=== PATIENT | female | born 1935 | race Caucasian/White ===

== ENCOUNTER 2017-12-25 10:22 | Inpatient (IN) | payer OTHER, BC ==
[~2017-12-25] VITALS: Ht 160 cm; Wt 66.0 kg
[~2017-12-25 10:22] MED LIST: ALTACE10 MG PO; ASPIRIN325 MG PO; ATIVAN2 MG PO; BENTYL20 MG PO; CENTRUM SILVER1 EAC3 PO; CITRACAL D + H1 EACH PO; LEVOXYL50 MCG PO; NEXIUM20 MG PO; TOPROL XL100 MG PO; TYLENOL EXTRA500 MG PO; ZOCOR10 MG PO; ZOLOFT100 MG PO; ZOLOFT25 MG PO
[2017-12-25 11:27] LABS: HEMATOCRIT 40.8 % (36.0-46.0); MCH 31.5 PG (29.0-34.0); MCHC 34.3 G/DL (30.0-36.0); MCV 91.9 FL (83-99); PLATELET COUNT 203 K/uL (156-360); RBC DIS.WIDTH-CV 13.9 % (11.8-14.6); RBC DIS.WIDTH-SD 47.2 % (39-53); RED BLOOD COUNT 4.44 M/uL (3.80-5.20); WHITE BLOOD COUNT 8.9 K/uL (4.1-10.2)
[2017-12-25 11:36] LABS: CHLORIDE 95 mEq/L (99-109); POTASSIUM 3.9 mEq/L (3.7-5.4); SODIUM 128 mEq/L (136-147)
[2017-12-25 11:37] LABS: GLUCOSE 110 mg/dL (70-99)
[2017-12-25 11:41] LABS: CREATININE 1.2 mg/dL (0.6-1.3); GFR ESTIMATE (CALCULATED) 46 mL/min/
[2017-12-25 11:42] LABS: UREA NITROGEN (BUN) 24 mg/dL (9-23)
[2017-12-25 11:48] LABS: TROP-I INTERPRETATION NEGATIVE; TROPONIN-I 0.02 ng/mL (0.0-0.30)
[2017-12-25] MEDS ORDERED: NITROFURANTOIN100 M3 PO (16:41)
[2017-12-25] MEDS ORDERED: METOPROLOL SUC200 MG PO (16:42)
[2017-12-25] MEDS ORDERED: RAMIPRIL10 MG PO (16:45)
[2017-12-25] MEDS ORDERED: TRAMADOL HCL50 MG PO (16:45)
[2017-12-25] MEDS ORDERED: LORAZEPAM2 MG PO (16:55)
[2017-12-25] MEDS ORDERED: XARELTO20 MG PO (16:56)
[2017-12-25] MEDS ORDERED: LO-DOSE ASPIRIN81 M2 PO (16:56)
[2017-12-25] MEDS ORDERED: LEVOTHYROXINE50 MCG PO (16:56)
[2017-12-25 16:59] VITALS: BP 129/75
[2017-12-25 17:00] VITALS: BP 129/75
[2017-12-25 19:27] LABS: TROP-I INTERPRETATION NEGATIVE; TROPONIN-I 0.02 ng/mL (0.0-0.30)
[2017-12-25 19:40] VITALS: BP 108/62
[2017-12-25 23:00] VITALS: BP 121/65
[2017-12-26 00:56] LABS: TROP-I INTERPRETATION NEGATIVE; TROPONIN-I 0.01 ng/mL (0.0-0.30)
[2017-12-26 04:00] VITALS: BP 126/66
[2017-12-26 07:05] LABS: HEMATOCRIT 40.5 % (36.0-46.0); HEMOGLOBIN 13.3 G/DL (11.9-15.5); MCH 30.4 PG (29.0-34.0); MCHC 32.8 G/DL (30.0-36.0); MCV 92.5 FL (83-99); PLATELET COUNT 178 K/uL (156-360); RBC DIS.WIDTH-CV 13.8 % (11.8-14.6); RBC DIS.WIDTH-SD 47.3 % (39-53); RED BLOOD COUNT 4.38 M/uL (3.80-5.20); WHITE BLOOD COUNT 8.8 K/uL (4.1-10.2)
[2017-12-26 07:28] LABS: CHLORIDE 101 MEQ/L (99-109); CREATININE 0.9 MG/DL (0.6-1.3); GFR ESTIMATE (CALCULATED) > 59 mL/min/; GLUCOSE 95 mg/dL (70-99); POTASSIUM 4.2 MEQ/L (3.7-5.4); UREA NITROGEN (BUN) 16 mg/dL (9-23)
[2017-12-26 07:29] LABS: SODIUM 135 MEQ/L (136-147)
[2017-12-26 07:32] LABS: TROP-I INTERPRETATION NEGATIVE; TROPONIN-I < 0.01 ng/mL (0.0-0.30)
[2017-12-26 07:46] VITALS: BP 113/78; BP 1137/78
[2017-12-26 08:00] LABS: THYROTROPIN (TSH) 5.3 MIU/L (0.4-5.5)
[2017-12-26 11:00] VITALS: BP 107/61
[2017-12-26 15:50] VITALS: BP 106/72
[2017-12-26 17:14] LABS: APPEARANCE TURBID ((CLEAR)); BILIRUBIN NEGATIVE; BLOOD MODERATE; COLOR AMBER ((YELLOW)); GLUCOSE (STRIP) NEGATIVE; KETONES NEGATIVE; LEUKOCYTES LARGE; NITRITE NEGATIVE; PROTEIN (STRIP) 30; SPECIFIC GRAVITY 1.009 (1.000-1.030); UROBILINOGEN 0.2 MG/DL (0.2-1.0)
[2017-12-26 17:34] LABS: BACTERIA 1+ /HPF; EPITHELIAL CELLS 1+ /HPF; MUCUS 1+ /LPF; UCUL ADDED? YES; WHITE BLOOD CELLS TNTC /HPF (0-5)
[2017-12-26 19:18] VITALS: BP 105/62
[2017-12-26 22:34] VITALS: BP 103/53
[2017-12-27 05:12] VITALS: BP 112/54
[2017-12-27 07:46] VITALS: BP 97/65
[2017-12-27 10:00] VITALS: BP 115/69
[2017-12-27] MEDS ORDERED: CARDIZEM CD,CA180 MG PO (10:41)
[2017-12-27] MEDS ORDERED: LIDOCAINE700 MG TP (10:49)
[2017-12-27] MEDS ORDERED: CEFTIN500 MG PO (10:49)
== END 2017-12-27 14:00 | disposition home health service (06) | DRG 309 ==
LOC: EME 10:22 → EDOF 14:46 → 4EAST 14:46 → EDOF 14:46 → ENRESERV 14:50 → EDOF 16:03 → 4EAST 16:37
PROVIDERS: Emergency Medicine; Family Medicine; Internal Medicine Cardiovascular Disease
DX: I48.0 Paroxysmal atrial fibrillation (principal); E87.1 Hypo-osmolality and hyponatremia; E86.0 Dehydration; I95.1 Orthostatic hypotension; J98.11 Atelectasis; S22.32XA Fracture of one rib, left side, initial encounter for closed fracture; S22.31XA Fracture of one rib, right side, initial encounter for closed fracture; W18.30XA Fall on same level, unspecified, initial encounter; N39.0 Urinary tract infection, site not specified; B96.1 Klebsiella pneumoniae [K. pneumoniae] as the cause of diseases classified elsewhere; Z16.39 Resistance to other specified antimicrobial drug; E03.9 Hypothyroidism, unspecified; I10 Essential (primary) hypertension; I25.10 Atherosclerotic heart disease of native coronary artery without angina pectoris; Z95.5 Presence of coronary angioplasty implant and graft; E78.5 Hyperlipidemia, unspecified; I25.2 Old myocardial infarction; K21.9 Gastro-esophageal reflux disease without esophagitis; K58.9 Irritable bowel syndrome, unspecified; F32.9 Major depressive disorder, single episode, unspecified; R26.9 Unspecified abnormalities of gait and mobility; Z79.01 Long term (current) use of anticoagulants
CPT/HCPCS: 70450; 71045; 71111; 80048; 81003; 84443; 84484; 85027; 87077; 87086; 87186; 93005; 93306; 94799; 99281; 99285; G0378; J0696; J7030; J7050